=== PATIENT | male | born 1995 | race African-American/Black ===

== ENCOUNTER 2021-04-14 23:21 | Emergency (ER) | payer SELFPAY ==
[2021-04-14 23:28] VITALS: BP 140/77; PULSE 103; TEMP 99.8; BMI 31.4
== END 2021-04-15 02:38 | disposition left against medical advice (07) ==
LOC: FER 23:21
DX: S02.40FA Zygomatic fracture, left side, initial encounter for closed fracture (principal); S02.32XA Fracture of orbital floor, left side, initial encounter for closed fracture; S02.401A Maxillary fracture, unspecified side, initial encounter for closed fracture; W22.8XXA Striking against or struck by other objects, initial encounter
CPT/HCPCS: 70480-TC; 70486-TC; 99284-25